=== PATIENT | female | born 1945 | race Two or more races ===

== ENCOUNTER 2021-01-08 05:20 | Day surgery (SDC) | payer OTHER ==
[~2021-01-08 05:20] MED LIST: CALCIUM PO; FLOVENT IH; MAGNESIUM PO; PROBIOTIC PO; ROSUVAST PO; SINGULAIR10 MG PO; VERELAN120 MG PO; ZETIA10 MG PO
== END 2021-01-08 13:55 | disposition home or self-care (01) ==
LOC: CIR.AMB 05:20
PROVIDERS: ATTEND Colon & Rectal Surgery
DX: R15.9 Full incontinence of feces (principal); Z20.822 Contact with and (suspected) exposure to COVID-19
CPT/HCPCS: 64581; C1778